=== PATIENT | female | born 1935 | race Caucasian/White ===

== ENCOUNTER 2018-04-15 18:20 | Inpatient (IN) | payer OTHER ==
[~2018-04-15] VITALS: Ht 162.6 cm; Wt 43.8 kg
[2018-04-15 18:21] VITALS: BP 136/62
[2018-04-15 18:59] LABS: URINE BILIRUBIN NEGATIVE (Negative); URINE BLOOD 3+ (Negative); URINE COLOR YELLOW; URINE GLUCOSE-RANDOM* NEGATIVE (Negative); URINE KETONES TRACE (Negative); URINE LEUKOCYTES-REFLEX 2+ (Negative); URINE NITRITE-REFLEX NEGATIVE (Negative); URINE PROTEIN (DIPSTICK) 2+ (Negative); URINE SPECIFIC GRAVITY 1.025 (1.005-1.035); URINE UROBILINOGEN 0.2 E.U./dl (0.2-1.0)
[2018-04-15 19:00] LABS: URINE CLARITY CLOUDY
[2018-04-15 19:08] LABS: ABSOLUTE NEUTROPHILS 6.8 thou/uL (1.4-8.2); BASOPHILS 0.8 % (0.0-2.0); EOSINOPHILS 1.8 % (0.0-3.0); HEMATOCRIT 31.6 % (37.0-47.0); HEMOGLOBIN 11.2 gm/dL (12.0-15.0); LYMPHOCYTES 17.4 % (24.0-44.0); MCH 33.1 pg (26.0-34.0); MCHC 35.3 g/dL (28.0-37.0); MCV 93.9 fL (80.0-100.0); MONOCYTES 4.1 % (1.0-8.0); PLATELET COUNT 354 thou/uL (150-400); POLYS 75.9 % (36.0-66.0); RBC 3.37 mil/uL (4.20-5.00); RDW 12.4 % (10.5-14.5)
[2018-04-15 19:09] LABS: CASTS None Seen /LPF (None Seen); SQUAMOUS 0-3 Few /LPF (0-3)
[2018-04-15 19:10] LABS: CRYSTALS None Seen /LPF (None Seen); URINE RBC >20 Many /HPF (0-2); WBC CLUMPS Few (None Seen)
[2018-04-15 19:12] LABS: ANION GAP 8 mmol/L (7-16); BUN 27 mg/dL (7-18); CALCIUM 9.5 mg/dL (8.5-10.1); CHLORIDE 104 mmol/L (98-107); CO2 25 mmol/L (21-32); CREATININE 0.7 mg/dL (0.6-1.0); GLUCOSE 162 mg/dL (74-106); POTASSIUM 4.4 mmol/L (3.5-5.1); SODIUM 137 mmol/L (136-145)
[2018-04-15 19:20] LABS: TROPONIN-I <0.06 ng/mL (<0.06)
[2018-04-15] MEDS ORDERED: VITAMIN B-12500 MCG PO (19:41)
[2018-04-15] MEDS ORDERED: COLACE100 MG PO (19:41)
[2018-04-15] MEDS ORDERED: HALOPERIDOL 1 MG1 MG PO (19:43)
[2018-04-15] MEDS ORDERED: MELATONIN1 MG PO (19:43)
[2018-04-15] MEDS ORDERED: SYNTHROID112 MC1 PO (19:43)
[2018-04-15] MEDS ORDERED: QUETIAPINE FUM100 MG PO (19:44)
[2018-04-15] MEDS ORDERED: MIRALAX17 GM (19:44)
[2018-04-15] MEDS ORDERED: SEROQUEL 25 MG25 M1 PO (19:45)
[2018-04-15 20:49] VITALS: BP 136/62
[2018-04-15 22:29] VITALS: BP 147/61
[2018-04-15 23:06] LABS: PROTIME 10.2 Seconds (9.3-11.4)
--- NOTE | 2018-04-16 02:57 | NUR ---
Assumed care of pt at 1900. Pt alert and oriented to self only. Pt is a resident of [facility]. Spoke to fdc nurse that takes care of pt to complete pt admission in the hospital. Pt came up to floor from ER approx 2145. Left femoral neck fx. Ayala catheter placed. NPO after midnight. Fall precautions in place. Will continue to monitor.
[2018-04-16 05:11] VITALS: BP 145/68
--- NOTE | 2018-04-16 08:24 | EKG ---
[address] [place] [address] ELECTROCARDIOGRAM REPORT Name: JUAN MIGUEL JIMENEZ Room #: 420-P ADM IN M.R.#: [id number] Admission: 04/15/18 Attend Phys: Larry Luna MD Discharge: Date of : 31 Report #: [id number] THIS REPORT FOR: //name// [facility] ED Test Date: 2018-04-15 Test Time: 18:47:10 Pat Name: JUAN MIGUEL JIMENEZ Department: Room: [facility] Gender: F Sole Tier: farhan : 1935 Requested By: Duane Christianson Order Number: [id number] MD: Asim Earl Measurements Intervals [place] Rate: 84 P: 69 NE: 128 QRS: 75 QRSD: 92 T: -72 QT: 360 QTc: 426 Interpretive Statements Sinus rhythm Nonspecific ST and T wave abnormality No previous ECG available for comparison Electronically Signed On 04-16-2018 8:23:54 SNELLER HAND by Asim Earl [email or web address] <ELECTRONICALLY SIGNED> By: Asim Earl MD, [facility] 04/16/18 0823 [id number] [id number] Asim Earl MD, FACC /EPI
--- NOTE | 2018-04-16 14:44 | NUR ---
PT HAS RETURNED FROM L HIP ARTHROPLAST, PT IS SLEEPING THOUGH IS ABLE TO AROUSE. IV FLUIDS INFUSING IN L AC. VSS.
[2018-04-16 16:27] VITALS: BP 104/42
--- NOTE | 2018-04-16 16:54 | NUR ---
PT ADMITTED RELATED TO REMORAL HEAD NECK FRACTURE. CM REVIEWED CHART AND SPOKE WITH CARE TEAM. 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 CM ATTEPTED PC TO CONTACT LISTED AND ENRIQUETA TAYLOR IS WITH THE [facility] PUBLIC [facility]MINISTR[facility] OFFICE. CM LEFT HER A VOICEMAIL. CM SPOKE WITH PT'S NURSE AND SHE INDICATED THAT SHE HAD CALLED A LEFT A VOICEMAIL EARLIER TODAY WELL. CM TO GET IN CONTACT WITH [facility] OFFICE REGARDING PT. CM TO FOLLOW INDICATED WITH DC PLANNING.
[2018-04-16 20:13] VITALS: BP 120/50
[2018-04-17 04:26] VITALS: BP 108/45
--- NOTE | 2018-04-17 05:42 | NUR ---
LEFT HIP LOUIE DRESSING WITH MINIMAL OLD SEROSANG DRAINAGE. APPEARED COMFORTABLE WITH REDUCED RESTLESSNESS, FACIAL GRIMACING AFTER PRN PO MED X 1. TOOK MEDS IN APPLESAUCE. CAMP WITH CLEAR YELLOW URINE, INSERTED FOR IMMOBILIZATION/ PAIN RELIEF AFTER LEFT HIP INJURY.
[2018-04-17 07:50] VITALS: BP 123/60
--- NOTE | 2018-04-17 07:53 | NUR ---
ASSUMED CARE OF PT AT 0700. ASSESSMENT COMPLETED. HX OF DEMENTIA. PT DROWSY, BUT AROUSABLE. DISORIENTED TO PERSON, PLACE, TIME. CONFUSED AND FORGETFUL. UNABLE TO VOICE CONCERNS APPROPRIATELY. DOES NOT APPEAR TO BE IN ANY DISTRESS. S/P LEFT HIP, PAIN MEDS GIVEN ORDERED. LEFT HIP INCISION WIH LOUIE DRESSING INTACT, SMALL AMOUNT OF DRIED SEROUSANGIOUS DRAINAGE. BILATERAL THIGH HIGH MADY HOSE IN PLACE, SCD'S. +2/+2 PULSES. NO EDEMA. CAMP CATHETER IN PLACE DUE TO IMMOBILIZATION, YELLOW URINE NOTED. WILL CONTINUE TO MONITOR.
--- NOTE | 2018-04-17 08:14 | HC ---
[facility] [place] [address] CONSULTATION Name: JUAN MIGUEL JIMENEZ Room #: 420- ADM IN M.R.#: [id number] Admission: 04/15/18 Attend Phys: Larry Luna MD Discharge: Date of : 31 Report #: [id number] THIS REPORT FOR: //name// CC: Harry Luna DATE OF SERVICE: 04/16/2018 CHIEF COMPLAINT: Left hip pain. HISTORY OF PRESENT ILLNESS: This frail, debilitated 83-year-old female with severe dementia, apparently was ambulating at her extended care facility and fell injuring the left hip. X-rays confirmed a displaced unstable femoral neck fracture on the left side. She has no other apparent injuries. She was evaluated by Dr. Luna from the hospitalist group and found to be generally medically stable with possible urinary tract infection, but no other significant acute medical problems. We discussed treatment options. I believe her durable power of real estate attorney is being contacted at the time of this dictation, but I have not yet had a chance to speak with her durable power of real estate attorney. At the time of my evaluation, she is frail and obviously demented and confused. She does seem to have discomfort with any attempted movement about the left hip. She holds the hip at a somewhat flexed and rotated fashion. There is pain with any attempted movement. She does not seem to have any other areas of discomfort with satisfactory alignment and movement of the neck, back and both upper extremities. X-rays and CT scan of the pelvis and left hip reveal a fracture of the left femoral neck with displacement. IMPRESSION: Left femoral neck fracture with displacement and instability. I think this is best managed with a cemented hip hemiarthroplasty. We will plan to proceed today with surgical repair, pending medical clearance. <ELECTRONICALLY SIGNED> By: Arvind Conner MD 04/17/18 0814 1051 [id number] Arvind Conner MD /nt
--- NOTE | 2018-04-17 08:14 | O ---
[facility] [place] [address] OPERATIVE REPORT Name: JUAN MIGUEL JIMENEZ Room #: 420-P ADM IN M.R.#: [id number] Admission: 04/15/18 Attend Phys: Larry Luna MD Discharge: Date of : 31 Report #: [id number] THIS REPORT FOR: //name// CC: Harry Luna DATE OF SERVICE: 04/16/2018 PREOPERATIVE DIAGNOSIS: Left femoral neck fracture. POSTOPERATIVE DIAGNOSIS: Left femoral neck fracture. PROCEDURE: Left proximal femoral hemiarthroplasty. SURGEON: Arvind Conner MD INDICATIONS: This frail, demented 83-year-old female is still ambulatory at an extended care facility. She fell there injuring the left hip. X-rays confirmed a displaced femoral neck fracture. We have elected to go ahead with surgical repair using a cemented hemiarthroplasty technique. DESCRIPTION OF PROCEDURE: The patient was taken to the operating room where she was placed under general anesthesia. Prophylactic intravenous antibiotics were administered. She was positioned in the right lateral decubitus position. A curving posterolateral skin incision was made. This was carried through fascia exposing the posterior aspect of the hip joint. The short external rotators and capsule were preserved and tagged with several #1 Tevdek sutures. The femoral neck was found to be fractured and unstable. There was moderate contraction suggesting this might be more of a subacute rather than acute fracture. The head was removed and measured at 47 mm in diameter. The neck was trimmed down to an appropriate level and the Ron and Nephew hip system was utilized. A size 11 cemented stem seemed to fit most appropriately. A trial reduction was performed and a satisfactory reduction using a -4 mm neck length and a 47 mm head size was selected. The trial components were removed. A cement restrictor was placed in the canal. Methyl methacrylate cement was mixed and injected into the canal. The Ron and Nephew size 11 cement stem was then inserted, positioning this in about 25 degrees of anteversion. A -4 mm neck length and 47 mm diameter unipolar head size was selected. These components were impacted on the Lockett taper. The hip was then reduced and held in neutral position as the cement fully cured. The hip seemed to be stable and well aligned. The capsule and short external rotators were then repaired back to bone. The fascia was then closed with multiple #1 Vicryl sutures and reinforced with 0 Monocryl. The subcutaneous tissues were also closed with 0 Monocryl. The skin was closed with [facility] [address] [place] [address] OPERATIVE REPORT Name: JUAN MIGUEL JIMENEZ Room #: 420-P [facility] IN .R.#: [id number] Admission: 04/15/18 Attend Phys: Larry Luna MD Discharge: Date of : 31 Report #: [id number] skin javid. A sterile dressing was applied. The patient was awakened and returned to the recovery room in good condition. <ELECTRONICALLY SIGNED> By: Arvind Conner MD 04/17/18 0814 1229 1245 Arvind Conner MD /nt
[2018-04-17 11:53] VITALS: BP 114/58
--- NOTE | 2018-04-17 14:24 | NUR ---
AIDAN SPOKE WITH ENRIQUETA AT [facility]S OFFICE. SHE IS NOW AWARE THAT PT IS HERE. SHE INDICATED THAT PLAN WOULD BE FOR PT TO RETURN TO [facility] ONCE MADICALLY STABLE. 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 PT TO B SEEN BY PT AND OT. CM TO FOLLOW INDICATED WITH DC PLANNING.
--- NOTE | 2018-04-17 15:00 | NUR ---
I have reviewed and concur with student documentation.
--- NOTE | 2018-04-17 15:02 | NUR ---
Patient was admitted for fall from standing. VS was done Q4h. patient has adequate apitite, PT helped patient move from bed to chair and back to bed. patient stayed in the chair for about two hours. patient had a bath while in the chair. Patient remains confused @ all times, mumbles frequently.
[2018-04-17] MEDS ORDERED: CEFDINIR300 MG PO (15:10)
[2018-04-17 15:48] VITALS: BP 111/54
--- NOTE | 2018-04-17 16:09 | NUR ---
CARE TEAM INDICATED THAT PT IS MEDICALLY STABLE TO DISCARGE BACK TO [facility] THIS DAY. SKILLED THERAPY SERVICES TO BE INITIATED UPON PT'S RETURN. CM CALLED ENRIQUETA TAYLOR WITH THE [facility]S OFFICE AND NOTIFID HER OF PLAN. SHE IS AWARE AND AGREEABLE. PT IS TO BE TRANSPORTED VIA [facility] THIS EVENING. CHART COPY MADE. REPORT TO BE CALLED TO . NO OTHER CM INTERVETION INDICATED AT THIS TIME. CASE CLOSED.
--- NOTE | 2018-04-17 16:23 | NUR ---
[facility] FAXED CLINICAL UPDATE TO [facility] SPOKE WITH CAROLINE IN ADM. AND SHE RECEIVED UPDATE AND WILL SUBMIT FOR AUTH. RENATO TO FOLLOW.
--- NOTE | 2018-04-17 16:25 | NUR ---
DCP FAXED CLINICAL UPDATE TO [facility] SPOKE WITH CAROLINE IN ADM. AND SHE RECEIVED UPDATE AND THEY CAN ACCEPT PT. TODAY. DCP TO FOLLOW.
--- NOTE | 2018-04-17 17:28 | NUR ---
NEW DISCHARGE ORDERS. REPORT CALLED TO FACILITY AT [facility], REPORT GIVEN TO MINONG. IV'S X2 REMOVED, NO BLEEDING NOTED. CAMP D/C, 400 ML YELLOW URINE NOTED. INCONTINENT AT BASELINE, BRIEF IN PLACE FOR TRANSPORT. PT DRESSED IN PERSONAL CLOTHES. PT LEFT VIA TRANSPORT BY [facility]ART AT 17:27 IN STABLE CONDITION. SENT PT BELONGINGS.
== END 2018-04-17 17:27 | DRG 470 ==
LOC: ER 18:20 → 4E 19:47 → EROBS 19:47 → 4E 21:24
PROVIDERS: Emergency Medicine; Nurse Practitioner Acute Care; ADMIT Internal Medicine
PROC: 0SRS019 Replacement of Left Hip Joint, Femoral Surface with Metal Synthetic Substitute, Cemented, Open Approach (ICD-10-PCS; principal; 2018-04-16)
DX: S72.002A Fracture of unspecified part of neck of left femur, initial encounter for closed fracture (principal); N39.0 Urinary tract infection, site not specified; F03.91 Unspecified dementia, unspecified severity, with behavioral disturbance; N17.9 Acute kidney failure, unspecified; E03.9 Hypothyroidism, unspecified; K59.00 Constipation, unspecified; W18.30XA Fall on same level, unspecified, initial encounter; Y93.89 Activity, other specified; Y92.128 Other place in nursing home as the place of occurrence of the external cause; Y99.8 Other external cause status; Z79.899 Other long term (current) drug therapy
CPT/HCPCS: 10084; 50010; 50101; 50382; 50414; 51057; 51130; 51225; 51412; 53000; 53369; 56521; 56525; 56527; 57103; 62110; 62900; 70005